=== PATIENT | female | born 1990 | race Caucasian/White ===

== ENCOUNTER 2021-03-28 19:18 | Emergency (ER) | payer OTHER, SELFPAY ==
[2021-03-28 19:32] VITALS: BP 117/64; PULSE 100; RESP 14; TEMP 36.6; O2SAT 99
--- NOTE | 2021-03-28 20:07 | ED.WOUNDLAC ---
HPI - Wound/Laceration General Chief Complaint: Wound/Laceration Stated Complaint: Swollen Ear Time Seen by Provider: 03/28/21 20:00 Source: patient and RN notes reviewed Mode of arrival: ambulatory Limitations: no limitations History of Present Illness HPI narrative: 31-year-old female presents with concern for swollen left earlobe after pulling a tick off of her ear yesterday. She reports she believes she got the full tick out, reports it is a brown tick. Reports the earlobe has been swelling, warm, tender. She reports yellow drainage from the bite site. Related Data Home Medications Medication Instructions Recorded Confirmed levonorgestrel-ethinyl estrad 1 tablet PO DAILY 03/28/21 03/28/21 Allergies Allergy/AdvReac Type Severity Reaction Status Date / Time amoxicillin Allergy Unknown HIVES Verified 03/28/21 19:39 Penicillins Allergy Unknown HIVES Verified 03/28/21 19:39 Sulfa (Sulfonamide Allergy Unknown Hives Verified 03/28/21 19:39 Antibiotics) Review of Systems Review of Systems: Narrative: CONSTITUTIONAL: Denies malaise, chills, sweats, or fever. EYES: Denies visual changes, redness, or discharge. ENT: Denies swollen lips, swollen tongue, difficulty swallowing CARDIOVASCULAR: Denies chest pain, palpitations, or edema. RESPIRATORY: Denies cough or dyspnea. GASTROINTESTINAL: Denies abdominal pain, nausea, vomiting, diarrhea SKIN: Reports swollen, red, tender left earlobe MUSCULOSKELETAL: Denies myalgia. NEUROLOGIC: Denies headache. All systems reviewed & are unremarkable except as noted in HPI and below PMFSH Comments At time of signature, agree with nursing past medical, surgical, social and family history. There is no relevant family history pertinent to the presenting complaint Exam Narrative: Exam Narrative: GENERAL: Well-appearing, well-nourished, and in no acute distress. HEAD: Normocephalic, atraumatic. EYES: PERRLA, conjunctivae clear, and EOMI. ENT: Mucous membranes moist. Oropharynx without edema, erythema or lesions. NECK: Supple. No lymphadenopathy CHEST: Clear to auscultation. No respiratory distress. HEART: Regular rate and rhythm. SKIN: Warm, dry. Left earlobe is erythematous, warm, tender with slight induration, yellow drainage noted no other redness rash noted to the body NEURO: Alert and oriented x3. PSYCH: Normal mood and affect Course Course Emergency Course: Patient is aware of diagnosis, understands and agrees to treatment plan. Anticipatory guidance given. Patient agrees to follow-up as directed and is aware of reasons to seek care at the emergency department. Portions of this record may have been created with voice recognition software Vital Signs Vital signs: Vital Signs Temperature 98 F 03/28/21 19:32 Pulse Rate 100 03/28/21 19:32 Respiratory Rate 14 03/28/21 19:32 Blood Pressure 117/64 03/28/21 19:32 Pulse Oximetry 99 03/28/21 19:32 Temperature 98 F 03/28/21 19:32 Pulse Rate 100 03/28/21 19:32 Respiratory Rate 14 03/28/21 19:32 Blood Pressure 117/64 03/28/21 19:32 Pulse Oximetry 99 03/28/21 19:32 Reviewed. MDM - Wound/Laceration MDM Narrative Medical decision making narrative: Exam findings show no acute concerns or changes; patient is non-toxic appearing and is in no distress. Patient is appropriate for outpatient treatment and follow-up. Differential Diagnosis Differential diagnosis: Likely abscess and other (Cellulitis, Lyme disease, foreign body) Critical Care Time Critical Care Time Critical Care Time: No Discharge Plan Discharge Clinical Impression: Cellulitis Qualifiers: Site of cellulitis: other site Qualified Code(s): L03.818 - Cellulitis of other sites Patient Disposition: Home, Self-Care Condition: Stable Instructions: Antibiotic Form, Cellulitis (ED) Additional Instructions: Please follow up with your Primary Care Doctor If symptoms worsen return for. Apply moist heat 3-4 times daily for 10-15
== END 2021-03-28 20:17 | disposition home or self-care (01) ==
PROVIDERS: Emergency Provider Nurse Practitioner; PCP Internal Medicine
DX: H60.12 Cellulitis of left external ear (principal)
CPT/HCPCS: 99213; G0463

== ENCOUNTER 2022-05-16 16:44 | Emergency (ER) | payer OTHER, SELFPAY ==
--- NOTE | 2022-05-16 16:48 | ED.SKABFB ---
HPI - Skin/Abscess/Foreign Bdy General Chief complaint: Skin/Abscess/Foreign Body Stated complaint: Rash Time Seen by Provider: 05/16/22 16:48 Source: patient Mode of arrival: ambulatory Limitations: no limitations History of Present Illness HPI narrative: Ms. Burger is a 32-year-old female patient presenting to the clinic today with complaints of rash x1 to 2 days. She reports she was pulling weeds and got into some poison dolores. She has facial swelling and itchy blistered rash to bilateral arms. Related Data Home Medications Medication Instructions Recorded Confirmed norgestimate-ethinyl estradiol tablet 05/16/22 05/16/22 0.18 mg/0.215mg/0.25mg-35 mcg(28)tablet (Tri Femynor) Allergies Allergy/AdvReac Type Severity Reaction Status Date / Time amoxicillin Allergy Unknown HIVES Verified 05/16/22 16:56 Penicillins Allergy Unknown HIVES Verified 05/16/22 16:56 Sulfa (Sulfonamide Allergy Unknown Hives Verified 05/16/22 16:56 Antibiotics) Review of Systems Review of Systems: Pertinent positives per HPI. Patient denies any fever, chills, headache, visual changes, dizziness, cough, runny nose, sore throat, shortness of breath, chest pain, palpitations, nausea, vomiting, diarrhea, constipation, abdominal pain, or any urinary issues. PMFSH Comments At the time of my signature, I reviewed and agree with the nursing past medical, surgical, social, and family history. There is no relevant family history pertinent to the patient complaint. Exam Narrative: General: Well-developed, well nourished, in no apparent distress Head: Normocephalic, atraumatic. Cardio: Regular rate and rhythm, s1 and s2 normal, no murmur appreciated. Resp: Clear to auscultation bilaterally, no rhonchi, rales, wheezing or rubs. Integumentary: [place], warm, and dry, intact without lesion, facial swelling with blistery red raised rash to face and bilateral arms. Course Course Emergency Course: Portions of this record may have been created with voice recognition software. Level of Care: Express Care Visit Vital Signs Vital signs: Vital signs reviewed MDM - Skin/Abscess/Foreign Bdy MDM Narrative Medical decision making narrative: At the time of visit patient was resting comfortably on the exam table. 10 mg of dexamethasone was given IM in the clinic. Prednisone prescription sent to the pharmacy. Supportive measures were discussed with the patient she voiced understanding of discharge instructions and agrees to treatment plan. Differential Diagnosis Differential diagnosis: Likely contact dermatitis Discharge Plan Discharge Clinical Impression: Allergic contact dermatitis due to plant Patient Disposition: Home, Self-Care Condition: Stable Instructions: Poison Dolores (ED), Cold Compress or Soak (ED) Additional Instructions: Prednisone as prescribed. Dexamethasone 10 mg IM given in the clinic today. Avoid hot showers Avoid scratching May apply cool compresses to help alleviate itching May take 25 to 50 mg of Benadryl every 6 hours as needed for itching. Follow-up with your PCP in 3 to 5 days if symptoms persist or sooner if they worsen Prescriptions: New prednisone 20 mg tablet 40 mg PO DAILY 5 Days Qty: 10 0RF No Action norgestimate-ethinyl estradiol [Tri Femynor] 0.18/0.215/0.25 mg-35 mcg (28) tablet Follow-up/Referrals: Madina,Jony Kirkland MD [Primary Care Provider] - Time of Disposition: 17:16 Quality NIHSS Nursing Documentation ED NIHSS nursing documentation: reviewed/agree
[2022-05-16 16:51] VITALS: BP 124/66; PULSE 74; RESP 16; TEMP 36.9; O2SAT 100
== END 2022-05-16 17:18 | disposition home or self-care (01) ==
PROVIDERS: Emergency Provider Nurse Practitioner Family; PCP Internal Medicine
DX: L23.7 Allergic contact dermatitis due to plants, except food (principal)
CPT/HCPCS: 96372; 99213; G0463; J1100

== ENCOUNTER 2023-03-04 18:00 | Emergency (ER) | payer OTHER, SELFPAY ==
[2023-03-04 18:06] VITALS: BP 100/59; PULSE 84; RESP 16; TEMP 37.1; O2SAT 100
--- NOTE | 2023-03-04 18:21 | ED.GENADULT ---
HPI - General Adult General Chief complaint: Ear Stated complaint: Ears nose throat Time Seen by Provider: 03/04/23 18:21 Source: patient, RN notes reviewed and old records reviewed Mode of arrival: ambulatory Limitations: no limitations History of Present Illness HPI narrative: 33-year-old female who presents to [facility] with complaints of bilateral ear pain and sinus pressure since yesterday. Patient also verbalizes that she has had some frontal headache pain. Patient denies any known fevers,chills or sweats, denies any cough or shortness of breath. Patient has taken Zyrtec for her symptoms. MD complaint: URI Onset (ago): day(s) (1) Severity scale (1-10): 5 Treatments prior to arrival: other (Zyrtec) Related Data Home Medications Medication Instructions Recorded Confirmed cetirizine 10 mg tablet (Zyrtec) 10 mg PO DAILY 03/04/23 03/04/23 Allergies Allergy/AdvReac Type Severity Reaction Status Date / Time amoxicillin Allergy Unknown HIVES Verified 03/04/23 18:12 Penicillins Allergy Unknown HIVES Verified 03/04/23 18:12 Sulfa (Sulfonamide Allergy Unknown Hives Verified 03/04/23 18:12 Antibiotics) Review of Systems Review of Systems: CONSTITUTIONAL: Denies malaise, chills, sweats, or fever. EYES: Denies visual changes, redness, or discharge. ENT: Reports rhinorrhea, congestion, sinus pain, otalgia denies sore throat. CARDIOVASCULAR: Denies chest pain, palpitations, or edema. RESPIRATORY: Reports no cough.? Denies dyspnea. GASTROINTESTINAL: Denies abdominal pain, nausea, vomiting, diarrhea SKIN: Denies rash or itching. MUSCULOSKELETAL: Denies myalgia. NEUROLOGIC:Reports frontal headache. 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 There is no relevant family history pertinent to the presenting complaint Exam Narrative: GENERAL: Well-appearing, well-nourished, and in no acute distress. HEAD: Normocephalic EYES: PERRLA, conjunctivae clear ENT: Nares clear, turbinates edematous and erythematous, clear discharge. Mucous membranes moist. TM pearly godinez with dull light reflex bilaterally; no tragal tenderness. Oropharynx erythematous without lesions. Tonsils not enlarged and without exudate, no drooling, no hoarseness, no trismus, uvula midline. NECK: Supple. No lymphadenopathy CHEST: Clear to auscultation, breath sounds equal. No wheezing, rhonchi, rales, or stridor. No respiratory distress, speaks in full sentences.SAO2 100% on room air HEART: Regular rate and rhythm. No murmur heard. SKIN: Warm, dry, no rash. NEURO: Alert and oriented x3. PSYCH: Normal mood and affect Course Course Emergency Course: Patient is aware of diagnosis, understands and agrees to treatment plan.? Anticipatory guidance given.? Patient agrees to follow-up as directed and is aware of reasons to seek care at the emergency department. Portions of this record may have been created with voice recognition software Level of Care: Express Care Visit Vital Signs Vital signs: Vital Signs Temperature 37.1 C 03/04/23 18:06 Pulse Rate 84 03/04/23 18:06 Respiratory Rate 16 03/04/23 18:06 Blood Pressure 100/59 L 03/04/23 18:06 Pulse Oximetry 100 03/04/23 18:06 Oxygen Delivery Room
== END 2023-03-04 18:43 | disposition home or self-care (01) ==
PROVIDERS: Emergency Provider Registered Nurse; PCP Internal Medicine
DX: J06.9 Acute upper respiratory infection, unspecified (principal); Q74.0 Other congenital malformations of upper limb(s), including shoulder girdle
CPT/HCPCS: 99213; G0463

== ENCOUNTER 2023-11-08 12:12 | Emergency (ER) | payer OTHER, SELFPAY ==
[2023-11-08 12:31] VITALS: BP 119/63; PULSE 94; RESP 16; TEMP 36.6; O2SAT 99
--- NOTE | 2023-11-08 12:41 | PC.NURSE ---
1237 in br to try to obtain dirty urine spec. and aware of need for clean catch urine.
--- NOTE | 2023-11-08 12:53 | ED.GENADULT ---
HPI - General Adult General Chief complaint: Urogenital-Female Stated complaint: Vaginal Issue Source: patient Mode of arrival: ambulatory Limitations: no limitations History of Present Illness HPI narrative: Patient presents for STI examination. She indicates she had to male sex partners within 24 hours approximately 1 week ago. She was involved in unprotected receptive vaginal intercourse. Yesterday she developed a loaiza vaginal discharge, some pelvic cramping and low back pain. She thinks she may be getting ready to start her period as her LMP was 10/09/2023. No fever, chills, nausea, vomiting. Related Data Allergies Allergy/AdvReac Type Severity Reaction Status Date / Time amoxicillin Allergy Unknown HIVES Verified 03/04/23 18:12 Penicillins Allergy Unknown HIVES Verified 03/04/23 18:12 Sulfa (Sulfonamide Allergy Unknown Hives Verified 03/04/23 18:12 Antibiotics) Review of Systems Review of Systems: CONSTITUTIONAL: Denies fever, chills, or sweats. EYES: Denies visual changes, redness, or discharge. ENT: Denies rhinorrhea, congestion, sore throat, or otalgia. CARDIOVASCULAR: Denies chest pain, palpitations, or edema. RESPIRATORY: Denies cough or dyspnea. GASTROINTESTINAL: Denies abdominal pain, nausea, vomiting, or diarrhea. GENITOURINARY: Reports vaginal discharge and pelvic cramping. SKIN: Denies rash or itching. MUSCULOSKELETAL:Reports low back pain. Denies joint pain, or myalgia. NEUROLOGIC: Denies headache, numbness, dizziness, or weakness. PSYCHIATRIC: Denies anxiety or depression. 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 HEAD: Normocephalic, atraumatic. EYES: PERRLA and EOMI. ENT: Nares clear, no rhinorrhea or epistaxis. Mucous membranes moist. Oropharynx without tonsillar hypertrophy exudate or other lesions. Bilateral TMs pearly godinez nonbulging NECK: Supple. No adenopathy or masses. No carotid bruits or JVD CHEST: Clear to auscultation. No respiratory distress. No wheezes rales or rhonchi HEART: Regular rate and rhythm. No murmur heard. Normal peripheral pulses. ABDOMEN: Soft, nontender, nondistended, normal active bowel sounds. GENITAL: No external genital lesions. No adnexal tenderness. Moderate amount of milky yellow brown drainage in vaginal vault. EXTREMITIES: Normal range of motion. No edema. SKIN: Warm, dry, no rash. NEURO: No focal deficits. Alert and oriented x3. PSYCH: Normal mood and affect. Course Course Emergency Course: This is a 33-year-old female who presented for evaluation of vaginal discharge. Opted to proceed with empiric treatment for gonorrhea, chlamydia, BV and trich. Also give her some Diflucan she can take at the end of her antibiotic course. Increase hydration. [id number] agents for symptom management. Follow up primary provider. Advised on safer sex practices. Patient in agreement with plan of care. Level of Care: Express Care Visit Vital Signs Vital signs: Vital Signs Temperature 36.6 C 11/08/23 12:31 Pulse Rate 94 11/08/23 12:31 Respiratory Rate 16 11/08/23 12:31
[2023-11-08] MEDS: cefTRIAXone 500 MG, LIDOCAINE HCL 1% LOCAL INJ 1 ML IM (13:29)
[2023-11-08 16:50] LABS: Trichomonas Vag PCR DETECTED (NOT DETECTE)
[2023-11-08 17:28] LABS: Chlamydia trachomatis NOT DETECTED (NOT DETECTE); Neisseria gonorrhoeae PCR NOT DETECTED (NOT DETECTE)
[2023-11-11 03:41] LABS: Bacterial Vaginosis Negative (Negative)
== END 2023-11-08 13:57 | disposition home or self-care (01) ==
PROVIDERS: Emergency Provider Nurse Practitioner; PCP Internal Medicine
DX: N76.0 Acute vaginitis (principal); Z11.3 Encounter for screening for infections with a predominantly sexual mode of transmission; Q74.0 Other congenital malformations of upper limb(s), including shoulder girdle; F17.210 Nicotine dependence, cigarettes, uncomplicated
CPT/HCPCS: 81003; 81513; 87070; 87086; 87491; 87591; 87661; 96372; 99214; G0463; J0696

== ENCOUNTER 2024-01-25 10:33 | Emergency (ER) | payer OTHER, SELFPAY ==
[2024-01-25 10:40] VITALS: BP 94/64; PULSE 97; RESP 18; TEMP 36.9; O2SAT 100
--- NOTE | 2024-01-25 11:23 | ED.FEMALEGU ---
HPI - Female Genitourinary General Stated complaint: std test History of Present Illness HPI Narrative: Patient presents with concerns that she is positive for Trichomonas again. Patient denies any concern for any other STDs and states she has been pretreated for Trichomonas in the past but got back together with her partner and feels that they are reinfect in each other with Trichomonas. Related Data Allergies Allergy/AdvReac Type Severity Reaction Status Date / Time amoxicillin Allergy Unknown HIVES Verified 03/04/23 18:12 Penicillins Allergy Unknown HIVES Verified 03/04/23 18:12 Sulfa (Sulfonamide Allergy Unknown Hives Verified 03/04/23 18:12 Antibiotics) Review of Systems Review of Systems: CONSTITUTIONAL: Denies fever, chills, or sweats. EYES: Denies visual changes, redness, or discharge. ENT: Denies rhinorrhea, congestion, sore throat, or otalgia. CARDIOVASCULAR: Denies chest pain, palpitations, or edema. RESPIRATORY: Denies cough or dyspnea. GASTROINTESTINAL: Denies abdominal pain, nausea, vomiting, or diarrhea. GENITOURINARY: Denies dysuria or hematuria. SKIN: Denies rash or itching. MUSCULOSKELETAL: Denies back pain, joint pain, or myalgia. NEUROLOGIC: Denies headache, numbness, or weakness. PSYCHIATRIC: Denies anxiety or depression. 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 There is no relevant family history pertinent to the presenting complaint Exam Narrative: GENERAL: Well-appearing, well-nourished, and in no acute distress. HEAD: Normocephalic, atraumatic. EYES: PERRLA and EOMI. ENT: Nares clear, no rhinorrhea or epistaxis. Mucous membranes moist. NECK: Supple. CHEST: Clear to auscultation. No respiratory distress. HEART: Regular rate and rhythm. No murmur heard. Normal peripheral pulses. ABDOMEN: Soft, nontender, nondistended, normal active bowel sounds. EXTREMITIES: Normal range of motion. No edema. SKIN: Warm, dry, no rash. NEURO: No focal deficits. Alert and oriented x3. [place] Coma Scale Eye Opening: Spontaneous 4 [place] Coma Scale Motor: Obeys Commands 6 [place] Coma Scale Verbal: Oriented 5 [place] Coma Scale Total 15 Course Course Level of Care: Express Care Visit Vital Signs Vital signs: Discussed will with patient will treat for Trichomonas at today's visit but will test for all STDs. Instructed not to drink alcohol while taking medication please call for results in 48-72 hours. Please of stain for any sexual counters for the next 7-10 days. Discharge Plan Discharge Clinical Impression: STD (female), Trichomonal infection Patient Disposition: Home, Self-Care Condition: Stable Instructions: Trichomoniasis (ED) Additional Instructions: STD If you are treated with Flagyl or Metronidazole, please abstain from alcohol use during the time of treatment and at least 24-48 hours after treatment is completed Please discuss testing and treating with all recent sexual partners, and advise testing as well. Please abstain from sexual activity for 7 days after treatment and until a
[2024-01-25 15:47] LABS: Trichomonas Vag PCR NOT DETECTED (NOT DETECTE)
[2024-01-25 16:10] LABS: Chlamydia trachomatis NOT DETECTED (NOT DETECTE); Neisseria gonorrhoeae PCR NOT DETECTED (NOT DETECTE)
== END 2024-01-25 11:25 | disposition home or self-care (01) ==
PROVIDERS: Emergency Provider Nurse Practitioner Family; PCP Internal Medicine
DX: A59.9 Trichomoniasis, unspecified (principal); F17.210 Nicotine dependence, cigarettes, uncomplicated; Q71.21 Congenital absence of both forearm and hand, right upper limb
CPT/HCPCS: 87491; 87591; 87661; 99214; G0463

== ENCOUNTER 2024-07-09 08:11 | Emergency (ER) | payer OTHER, SELFPAY ==
[2024-07-09 08:16] VITALS: BP 114/71; PULSE 98; RESP 16; TEMP 36.7; O2SAT 100
--- NOTE | 2024-07-09 08:25 | ED.URI ---
HPI - URI/Sore Throat General Chief Complaint: Upper Respiratory Infection Stated Complaint: Rash/Sore Throat Time Seen by Provider: 07/09/24 08:25 History of Present Illness HPI Narrative: 34-year-old female presented for complaint of itchy rash to both sides of the neck for about a month. Also reports sore throat nasal congestion and cough for about 3 days. Patient states she would like blood test to confirm HSV diagnosis, Endorses exposure. Denies any lesions or wounds. Denies shortness of breath, wheezing, nausea, vomiting, fevers or chills. Related Data Allergies Allergy/AdvReac Type Severity Reaction Status Date / Time amoxicillin Allergy Unknown HIVES Verified 01/25/24 13:26 Penicillins Allergy Unknown HIVES Verified 01/25/24 13:26 Sulfa (Sulfonamide Allergy Unknown Hives Verified 01/25/24 13:26 Antibiotics) Review of Systems Review of Systems: CONSTITUTIONAL: Denies body aches, fever, chills, or sweats. EYES: Denies visual changes, redness, or discharge. ENT: reports sore throat, rhinorrhea, congestion, otalgia. CARDIOVASCULAR: Denies chest pain, palpitations, or edema. RESPIRATORY: Denies dyspnea. GASTROINTESTINAL: Denies abdominal pain, nausea, vomiting, or diarrhea. SKIN: Denies reports rash to neck MUSCULOSKELETAL: Denies back pain, joint pain, or myalgia. 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 EYES: conjunctivae clear ENT: Mucous membranes moist. TMs pearly godinez with normal light reflex bilaterally; no tragal tenderness. Oropharynx not erythematous without lesions. Tonsils not enlarged and without exudate. No drooling, no hoarseness, no trismus, uvula midline. No tripod positioning, hot potato voice, or soft palate swelling. NECK: Supple. No lymphadenopathy CHEST: Clear to auscultation, breath sounds equal. No respiratory distress, speaks in full sentences. HEART: Regular rate and rhythm. No murmur heard. SKIN: Warm, dry, Mildly erythematous flaky patches to both sides of neck. NEURO: Alert and oriented x3. Course Course Emergency Course: Patient is aware of diagnosis, understands and agrees to treatment plan. Anticipatory guidance given. Patient agrees to follow-up as directed and is aware of reasons to seek care at the emergency department. Portions of this record may have been created with voice recognition software Level of Care: Express Care Visit Vital Signs Vital signs: Vital Signs Temperature 98.1 F 07/09/24 08:16 Pulse Rate 98 07/09/24 08:16 Respiratory Rate 16 07/09/24 08:16 Blood Pressure 114/71 07/09/24 08:16 Pulse Oximetry 100 07/09/24 08:16 Oxygen Delivery Room Air 07/09/24 08:16 Temperature 98.1 F 07/09/24 08:16 Pulse Rate 98 07/09/24 08:16 Respiratory Rate 16 07/09/24 08:16 Blood Pressure 114/71 07/09/24 08:16 Pulse Oximetry 100 07/09/24 08:16 Oxygen Delivery Room Air 07/09/24 08:16 MDM - URI/Sore Throat MDM Narrative Medical decision making narrative: Neg strep result reviewed with pt. discussed physical exam findings consistent with dermatitis
[2024-07-09 08:38] LABS: EDSTREPNEGPOS1 Negative
== END 2024-07-09 08:48 | disposition home or self-care (01) ==
PROVIDERS: Emergency Provider Nurse Practitioner Family; PCP Internal Medicine
DX: L30.9 Dermatitis, unspecified (principal); F17.210 Nicotine dependence, cigarettes, uncomplicated
CPT/HCPCS: 87081; 87880; 99213; G0463

== ENCOUNTER 2024-11-24 12:37 | Emergency (ER) | payer OTHER, SELFPAY ==
[2024-11-24 12:43] VITALS: BP 100/52; PULSE 86; RESP 16; TEMP 36.8; O2SAT 100
[2024-11-24 13:36] LABS: EDSTREPNEGPOS1 Negative (Negative)
--- NOTE | 2024-11-24 14:05 | ED.GENADULT ---
HPI - General Adult General Chief complaint: Upper Respiratory Infection Stated complaint: Sore Throat Source: patient Mode of arrival: ambulatory Limitations: no limitations History of Present Illness HPI narrative: Pt presents requesting a strep test. Two of her family members tested positive for strep earlier today. Pt does not have a sore throat. No fever, chills, nausea, vomiting, cough, SOB or any other symptoms whatsoever. Related Data Home Medications ?Medication ?Instructions ?Recorded ?Confirmed ?Last Taken ?Type Fish Oil 11/24/24 Unknown History vitamin b 11/24/24 Unknown History Allergies Allergy/AdvReac Type Severity Reaction Status Date / Time amoxicillin Allergy Unknown HIVES Verified 11/24/24 12:40 Penicillins Allergy Unknown HIVES Verified 11/24/24 12:40 Sulfa (Sulfonamide Allergy Unknown Hives Verified 11/24/24 12:40 Antibiotics) Review of Systems Review of Systems: CONSTITUTIONAL: Denies fever, chills, or sweats. EYES: Denies visual changes, redness, or discharge. ENT: Denies rhinorrhea, congestion, sore throat, or otalgia. CARDIOVASCULAR: Denies chest pain, palpitations, or edema. RESPIRATORY: Denies cough or dyspnea. GASTROINTESTINAL: Denies abdominal pain, nausea, vomiting, or diarrhea. GENITOURINARY: Denies dysuria or hematuria. SKIN: Denies rash or itching. MUSCULOSKELETAL: Denies back pain, joint pain, or myalgia. NEUROLOGIC: Denies headache, numbness, dizziness, or weakness. PSYCHIATRIC: Denies anxiety or depression. 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 HEAD: Normocephalic, atraumatic. EYES: PERRLA and EOMI. ENT: Nares clear, no rhinorrhea or epistaxis. Mucous membranes moist. Oropharynx without tonsillar hypertrophy exudate or other lesions. Bilateral TMs pearly godinez nonbulging NECK: Supple. No adenopathy or masses. No carotid bruits or JVD CHEST: Clear to auscultation. No respiratory distress. No wheezes rales or rhonchi HEART: Regular rate and rhythm. No murmur heard. Normal peripheral pulses. ABDOMEN: Soft, nontender, nondistended, normal active bowel sounds. EXTREMITIES: Normal range of motion. No edema. SKIN: Warm, dry, no rash. NEURO: No focal deficits. Alert and oriented x3. PSYCH: Normal mood and affect. Course Course Emergency Course: This is a 34 yr old female who presented requesting a strep test. She is asymptomatic. Strep was negative. Will send throat culture. Advised on hand hygiene and infection control measures. Follow up with primary provider. Go to the ER for worsening symptoms. Pt in agreement with plan of care. Level of Care: Express Care Visit Vital Signs Vital signs: Vital Signs Temperature 36.8 C 11/24/24 12:43 Pulse Rate 86 11/24/24 12:43 Respiratory Rate 16 11/24/24 12:43 Blood Pressure 100/52 L 11/24/24 12:43 Pulse Oximetry 100 11/24/24 12:43 Oxygen Delivery Room Air 11/24/24 12:43 Temperature 36.8 C 11/24/24 12:43 Pulse Rate 86 11/24/24 12:43 Respiratory Rate 16 11/24/24 12:43 Blood Pressure 100/52 L 11/24/24 12:43 Pulse Oximetry 100 11/24/24 12:43 Oxygen Delivery Room Air 11/24/24 12:43 Medical Decision Making Vital Signs Vital Signs: Vital Signs Temperature 36.8 C 11/24/24 12:43 Pulse Rate 86 11/24/24 12:43 Respiratory Rate 16 11/24/24 12:43 Blood Pressure 100/52 L 11/24/24 12:43 Pulse Oximetry 100 11/24/24 12:43 Oxygen Delivery Room Air 11/24/24 12:43 Temperature 36.8 C 11/24/24 12:43 Pulse Rate 86 11/24/24 12:43 Respiratory Rate 16 11/24/24 12:43 Blood Pressure 100/52 L 11/24/24 12:43 Pulse Oximetry 100 11/24/24 12:43 Oxygen Delivery Room Air 11/24/24 12:43 Lab Data Labs: Lab Results 11/24/24 Range/Units 13:35 POC Grp A Strep Screen Negative (Negative) Discharge Plan Discharge Clinical Impression: Exposure to strep throat Patient Disposition: Home, Self-Care Condition: Stable Instructions: Antibiotic Form, Normal Exam (ED) Patient Language: Amharic Prescriptions: No Action Fish Oil vitamin b Follow-up/Referrals: Bridgette Morrissey [Other] Time of Disposition: 14:04
--- OUTSIDE RECORDS SUMMARY | 2024-11-26 00:23 | XMS_ITS | Clinical Summary ---
Author Organization [facility] Address [address] [place] [address] Phone Care Team Providers Care Lead Sales Consultant Name Role Phone Bridgette Morrissey APRN, MANAGER CAR Primary Care P rovider Dinora Rojas APRN, MANAGER CAR Unavailable [phone] Cheikh Fairbanks MD Unavailable [phone] Allergies Active Allergy Reactions Criticality Noted Date Comments Amoxicillin Hives,Itching 08/17/2018 Cefaclor Hives Reaction: Hives, Penicillins Itching 08/17/2018 Sulfa Antibiotics Swelling 08/17/2018 Valacyclovir Hives Low 08/23/2024 Medications No known medications Active Problems Problem Noted Date Diagnosed Date 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 Menometrorrhagia 09/14/2018 Immunizations Immunization Administration Dates Next Due DTP Vaccine 04/07/1995,05/19/1992,01/13/1991 Hib Vaccine,unspecified Formulation 05/19/1992,0 01/13/1991 Inactivated Polio Vaccine 05/19/1992,01/13/1991 Influenza Vaccine, Quadrivalent, PF 08/04/2020,0 12/30/2019,08/17/2018 MMR Vaccine 11/30/2014,04/07/1995,05/19/1992 OPV 04/07/1995 TD VACCINE 08/09/2004 TDAP Vaccine 02/03/2024(),11/29/2014 Social History Tobacco Use Types Packs/Day Years Used Date Smoking Tobacco: Former Cigarettes Smokeless Tobacco: Never Tobacco Cessation:Counseling Given: No Alcohol Use Standard Drinks/Week Comments Yes 0 (1 standard drink = 0.6 oz pur e alcohol) Occasionally C Utilities Answer Date Recorded In the past 12 months has th e electric, gas, oil, or water company threatened to shut off services in your home? No 07/16/2024 Social Connection and Isolat ion Panel [NHANES] Answer Date Recorded In a typical week, how many times do you talk on the phone with family, friends, or neighbors? More than three times a week 07/16/2024 How often do you get togethe r with friends or relatives? Once a week 07/16/2024 How often do you attend chur or voodoo services? Never 07/16/2024 Do you belong to any clubs o r organizations such as amish groups, unions, fraternal or athletic groups, or school groups? No 07/16/2024 How often do you attend meet ings of the clubs or organizations you belong to? Never 07/16/2024 Are you , , di vorced, , never , or living with a partner? Never 07/16/2024 AUDIT-C Answer Date Recorded Q1: How often do you have a drink containing alc ohol? Monthly or less 07/16/2024 Q2: How many drinks containi ng alcohol do you have on a typical day when you are drinking? 1 or 2 07/16/2024 Q3: How often do you have si x or more drinks on one occasion? Never 07/16/2024 Overall Financial Resource Strain (CARDIA) Answe r Date Recorded How hard is it for you to pa y for the very basics like food, housing, medical care, and heating? Hard 07/16/2024 [facility] - Occupational Stress Questionnaire Answer Date Recorded Do you feel stress - tense, restless, nervous, or anxious, or unable to sleep at night because your mind is troubled all the time - these days? Rather much 07/16/2024 Exercise Vital Sign Answer Date Recorde d On average, how many days pe r week do you engage in moderate to strenuous exercise (like a brisk walk)? 7 days 07/16/2024 On average, how many minutes do you engage in exercise at this level? 60 min 07/16/2024 Hunger Vital Sign Answer Date Recorded Within the past 12 months, y ou worried that your food would run out before you got the money to buy more. Sometimes true Within the past 12 months, t he food you bought just didn't last and you didn't have money to get more. Sometimes true PRAPARE - Transportation Answer Date Re corded In the past 12 months, has l ack of transportation kept you from medical appointments or from getting medications? No 07/04 In the past 12 months, has l ack of transportation kept you from meetings, work, or from getting things needed for daily living? No 07/16/2024 Housing Stability Vital Sign Answer Renato e Recorded In the last 12 months, was t here a time when you were not able to pay the mortgage or rent on time? Yes 07/16/2024 Number of Times Moved in the Last Year Not on fi le 07/16/2024 At any time in the past 12 m [facility], were you homeless or living in a halfway (including now)? No 07/16/2024 Comments No Sex and Gender Information Value Date Recorded Sex Assigned at Not on file Legal Sex Female 7:34 PM CDT Gender Identity Not on file Sexual Orientation Not on file Last Filed Vital Signs Vital Sign Reading Time Taken Comments Blood Pressure 112/58 08/23/2024 3:29 PM CDT Pulse 68 08/23/2024 3:29 PM CDT Temperature 36.2 ??C (97.1 ??F) 08/23/2024 3:29 PM CD T Respiratory Rate 20 08/23/2024 3:29 PM CDT Oxygen Saturation 98% 08/23/2024 3:29 PM CDT Inhaled Oxygen Concentration - - Weight 48.5 kg (107 lb) 08/23/2024 3:29 PM CDT Height 157.5 cm (5' 2 ) 07/16/2024 2:39 PM CDT Body Mass Index 19.57 07/16/2024 2:39 PM CDT Plan of Treatment Health Maintenance Due Date Last Done Comments Pap Smear 08/17/2021 08/17/2018 Cervical Cancer Screening (CCS) 08/17/2023 HPV/Cotest 08/17/2023 08/17/2018 SARS-COV-2 Immunization (2023- season) 2024 DTaP/Tdap/Td Immunization (6 - Td or Tdap) 11/29/2024 11/29/2014, 08/09/2004, 04/07/1995, Additional history exists Influenza Immunization (#1) 2025 08/04/2020, 12/30/2019, 08/17/2018 Postponed from 07/04/2024 (Patient Temporarily Declines) Respiratory Syncytial Virus (RSV) Immunization (Adult) (1 - 1-dose 75+ series) 2065 Hepatitis C Virus (HCV) Screening Completed 07/08/2014 TdaP Immunization Discontinued 11/29/2014 Hepatitis B Immunization Discontinued Meningococcal Immunization (ACWY) Aged Out No longer eligible based on patient's age to complete this topic Pneumococcal Immunization Combined Aged Out No longer eligible based on patient's age to complete this topic Rotavirus Immunization Aged Out No lo nger eligible based on patient's age to complete this topic Procedures Procedure Name Priority Date/Time Associated Diagnosis Comments HUMAN PAPILLOMA VIRUS (HPV) Routine 08/17/2018 3:31 PM CDT Cervical cancer screening PATHOLOGY CYTOLOGY AREA LOSS PREVENTION MANAGER Routine 08/17/2018 3:31 PM CDT Cervical cancer screening from Last 3 Months or Most Recently Relevant to Health Maintenance Results * PATHOLOGY CYTOLOGY AREA LOSS PREVENTION MANAGER (08/17/2018 3:31 PM CDT) SPECIMEN ADEQUACY Satisfactory for evaluation. Endocervical cells present. 08/31/2018 6:06 PM CDT [facility] GENERAL CATEGORY EPITHELIAL CELL ABNORMALITY 08/31/2018 6:06 PM CDT [facility] DESCRIPTIVE DIAGNOSIS ASCUS: A high grade lesion cannot be excluded. 08/31/2018 6:06 PM CDT [facility] MATED EXAMINATION Analysis of this sample has been assisted by an automated imaging and review system ([employer] Imaging System, [employer], [place], [place]). This case is further evaluated and finalized by a kettle hand and/or pathologist. 08/31/2018 6:06 PM CDT [facility] DISCLAIMER The PAP smear is a screening test designed to detect cancerous or precancerous cells of the uterine cervix. It is one of the best means available for detection of cervical cancer but still carries an inherent false-negative rate. ??The consequences of a false-negative PAP result can be minimized by adhering to current screening guidelines. ??The following are general guidelines recommended by the ACS, ASCP, ASCCP, and ACOG: ??PAP testing is recommended every three years for women 21-29, Co-Testing , a PAP test in conjunction with an HPV (Human Papillomavirus) test for women ages 30-65, and no PAP or HPV testing for women under the age of 21 or older than 65 unless clinically indicated. 08/31/2018 6:06 PM CDT [facility] Case Report Gynecologic Cytology Report ? Case: [id number] ? Authorizing Provider: ??Alexandra Sinclair, PAC ?Collected: ? 08/17/2018 03:31 PM ? [facility] ? [facility] ? Received: ?08/17/2018 03:31 PM ? [facility] - ? [place] ? First Screen: ?Caryn Mchugh ? Pathologist: ? Flor Perkins ? MD Nia ? Specimen: ?TP Screen, CERVIX/ENDOCERVIX ? 08/31/2018 6:06 PM CDT [facility] HPV Reflex if ASCUS? Yes 08/31/2018 6:06 PM CDT [facility] Specimen of unknown material (specimen) (Cervix/Endocerv ix) Non-Phlebotomy Collection / Unknown 08/17/2018 3:31 PM CDT 08/17/2018 3:31 PM CDT us Alexandra Sinclair PAC PATHOLOGY/CYTOLOGY ORDERA BLES Final Result [facility] [address] [place] [address], [place] * HUMAN PAPILLOMA VIRUS (HPV) (08/17/2018 3:31 PM CDT) HPV OTHER HIGH RISK TYPES, PCR NEGATIVE NEGATIVE 09/02/2018 3:58 PM CDT [facility] Comment: The following Other High Risk types were not detected: 31, 33, 35, 39, 45, 51, 52, 56, 58, 59, 66, and 68. A negative high-risk HPV result does not exclude the possibility of future cytologic HSIL or underlying CIN2-3 or cancer. The presence of PCR inhibitors may cause false negative or invalid results. If concentrations of whole blood in the sample exceed 1.5% (dark red or brown coloration) in PreservCyt solution, there is a likelihood of obtaining a false-negative result. HPV TYPE 16 NEGATIVE NEGATIVE 09/02/2018 3:58 PM CDT [facility] Comment: A negative high-risk HPV result does not exclude the possibility of future cytologic HSIL or underlying CIN2-3 or cancer. The presence of PCR inhibitors may cause false negative or invalid results. If concentrations of whole blood in the sample exceed 1.5% (dark red or brown coloration) in PreservCyt solution, there is a likelihood of obtaining a false-negative result. HPV TYPE 18 NEGATIVE NEGATIVE 09/02/2018 3:58 PM CDT [facility] Comment: A negative high-risk HPV result does not exclude the possibility of future cytologic HSIL or underlying CIN2-3 or cancer. The presence of PCR inhibitors may cause false negative or invalid results. If concentrations of whole blood in the sample exceed 1.5% (dark red or brown coloration) in PreservCyt solution, there is a likelihood of obtaining a false-negative result. Specimen of unknown material (specimen) (Cervix/Endocerv ix) Non-Phlebotomy Collection / Unknown 08/17/2018 3:31 PM CDT 08/31/2018 6:06 PM CDT Narrative [facility] - 09/02/2018 3:58 PM CDT Performed by Real-Time Polymerase Chain Reaction (PCR) on the [employer] 4800. This assay has been validated for use with post-aliquot samples from the [employer] T5000 processor. us Alexandra Sinclair PAC LAB SEND OUTS Final Res ult [facility] [address] [place] [address], [place] from Last 3 Months or Most Recently Relevant to Health Maintenance Insurance [place] [employer] Care Teams Lead Sales Consultant Relationship Specialty Start Date End Date Bridgette Morrissey APRN, MANAGER CAR [address] [place] [address] PCP - General Advanced Practice Nurse 07/16/24 Dinora Rojas APRN, MANAGER CAR [address] [place] [address] Nurse Practitioner Advanced Practice Nurse 09/15/24 Cheikh Fairbanks MD [address] [place] [address] Consulting Physician Obstetrics & Gynecology 09/28/24
== END 2024-11-24 14:10 | disposition home or self-care (01) ==
PROVIDERS: Emergency Provider Nurse Practitioner
DX: Z20.818 Contact with and (suspected) exposure to other bacterial communicable diseases (principal); F17.210 Nicotine dependence, cigarettes, uncomplicated; Q71.21 Congenital absence of both forearm and hand, right upper limb
CPT/HCPCS: 87081; 87880; 99213; G0463

== ENCOUNTER 2025-02-02 09:34 | Emergency (ER) | payer OTHER, SELFPAY ==
[2025-02-02 09:44] VITALS: BP 102/70; PULSE 81; RESP 16; TEMP 36.7; O2SAT 97
--- NOTE | 2025-02-02 09:49 | ED.GENADULT ---
HPI - General Adult General Chief complaint: Upper Respiratory Infection Stated complaint: sore throat Time Seen by Provider: 02/02/25 09:49 History of Present Illness HPI narrative: 34-year-old female presented for complaint of sore throat. Onset yesterday. Endorses stones with similar symptoms. She denies shortness of breath, wheezing nausea, vomiting, fevers or lethargy. She took ibuprofen. Related Data Home Medications ?Medication ?Instructions ?Recorded ?Confirmed ?Last Taken ?Type No Home Medications 02/02/25 Unknown History Allergies Allergy/AdvReac Type Severity Reaction Status Date / Time amoxicillin Allergy Unknown HIVES Verified 02/02/25 09:52 Penicillins Allergy Unknown HIVES Verified 02/02/25 09:52 Sulfa (Sulfonamide Allergy Unknown Hives Verified 02/02/25 09:52 Antibiotics) Review of Systems Review of Systems: CONSTITUTIONAL: Denies body aches, fever, chills, or sweats. EYES: Denies visual changes, redness, or discharge. ENT: Reports sore throat Denies rhinorrhea, congestion, or otalgia. CARDIOVASCULAR: Denies chest pain, palpitations, or edema. RESPIRATORY: Denies dyspnea. GASTROINTESTINAL: Denies abdominal pain, nausea, vomiting, or diarrhea. SKIN: Denies rash MUSCULOSKELETAL: Denies back pain, joint pain, or myalgia. 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 EYES: conjunctivae clear ENT: Mucous membranes moist. TM pearly godinez with normal light reflex bilaterally; no tragal tenderness. Oropharynx erythematous without lesions. Tonsils enlarged 1+ and without exudate. No drooling, no hoarseness, no trismus, uvula midline. No tripod positioning, hot potato voice, or soft palate swelling. NECK: Supple. No lymphadenopathy CHEST: Clear to auscultation, breath sounds equal. No respiratory distress, speaks in full sentences. HEART: Regular rate and rhythm. No murmur heard. SKIN: Warm, dry, no rash. NEURO: Alert and oriented x3. Course Course Emergency Course: Patient is aware of diagnosis, understands and agrees to treatment plan. Anticipatory guidance given. Patient agrees to follow-up as directed and is aware of reasons to seek care at the emergency department. Portions of this record may have been created with voice recognition software Level of Care: Express Care Visit Vital Signs Vital signs: Vital Signs Temperature 98.1 F 02/02/25 09:44 Pulse Rate 81 02/02/25 09:44 Respiratory Rate 16 02/02/25 09:44 Blood Pressure 102/70 02/02/25 09:44 Pulse Oximetry 97 02/02/25 09:44 Oxygen Delivery Room Air 02/02/25 09:44 Temperature 98.1 F 02/02/25 09:44 Pulse Rate 81 02/02/25 09:44 Respiratory Rate 16 02/02/25 09:44 Blood Pressure 102/70 02/02/25 09:44 Pulse Oximetry 97 02/02/25 09:44 Oxygen Delivery Room Air 02/02/25 09:44 Medical Decision Making MDM Narrative Medical decision making narrative: strep negative. Discussed physical exam findings. Advised supportive measures and signs/symptoms to go to the ER. Pt is appropriate for outpt treatment and f/u. Differential Diagnosis Differential Diagnosis: Influenza, covid, sinusitis, OM, strep pharyngitis, URI Vital Signs Vital Signs: Vital Signs Temperature 98.1 F 02/02/25 09:44 Pulse Rate 81 02/02/25 09:44 Respiratory Rate 16 02/02/25 09:44 Blood Pressure 102/70 02/02/25 09:44 Pulse Oximetry 97 02/02/25 09:44 Oxygen Delivery Room Air 02/02/25 09:44 Temperature 98.1 F 02/02/25 09:44 Pulse Rate 81 02/02/25 09:44 Respiratory Rate 16 02/02/25 09:44 Blood Pressure 102/70 02/02/25 09:44 Pulse Oximetry 97 02/02/25 09:44 Oxygen Delivery Room Air 02/02/25 09:44 Lab Data Labs: Lab Results 02/02/25 Range/Units 10:03 POC Grp A Strep Screen Negative (Negative) Discharge Plan Discharge Clinical Impression: Pharyngitis Patient Disposition: Home, Self-Care Condition: Stable Instructions: Antibiotic Form, Pharyngitis (ED) Additional Instructions: Rapid strep swab was negative today You will be notified in a few days if the culture comes back positive for strep, and appropriate antibiotics will be called in at that time. if symptoms are due to a viral illness, it is not treated with antibiotics. Viral symptoms can be present for up to 10-14 days. Recommendations: Flonase spray and Zyrtec for sinus congestion Cough syrup may cause drowsiness; avoid driving or take it at night time. Tylenol every 8 hours as needed for pain/fever Soft foods, cool liquids, warm tea. Gargle with warm saltwater twice a day. Chloraseptic spray and throat lozenges. Rest and stay hydrated. --Follow up with your PCP --Go to the ER immediately if you cannot swallow your saliva, trouble breathing/wheezing, throat swelling, pain is persistent and severe Patient Language: Citizen Of [place] Prescriptions: No Action No Home Medications Follow-up/Referrals: Yuni,Bridgette Kaur APN [Primary Care Provider] - Time of Disposition: 10:07
[2025-02-02 10:03] LABS: EDSTREPNEGPOS1 Negative (Negative)
--- OUTSIDE RECORDS SUMMARY | 2025-02-02 10:19 | XMS_ITS | Clinical Summary ---
Author Organization [facility] Address [address] [place] [address] Phone Care Team Providers Care Irrigation Equipment Remover Name Role Phone Bridgette Morrissey APRN, COGNOS BI DEVELOPER Primary Care P rovider Dinora Rojas APRN, COGNOS BI DEVELOPER Unavailable [phone] Cheikh Fairbanks MD Unavailable [phone] Allergies Active Allergy Reactions Criticality Noted [...] How often do you attend chur or synagogue services? Never 07/16/2024 Do you belong to any clubs o r organizations such as yazidi groups, unions, fraternal or athletic groups, or [...] housing, medical care, and heating? Hard 07/16/2024 [facility] - Occupational Stress [...] any time in the past 12 m [facility], were you homeless or living in a fci (including now)? No 07/16/2024 Comments No Sex and Gender Information Value Date Recorded Sex Assigned at Not on file Legal Sex Female 7:34 PM CDT Gender Identity Not on file Sexual Orientation Not on file Last Filed Vital Signs Vital Sign Reading Time Taken Comments Blood Pressure 112/58 08/23/2024 3:29 PM CDT Pulse 68 08/23/2024 3:29 PM CDT Temperature 36.2 C (97.1 F) 08/23/2024 3:29 PM CDT Respiratory Rate 20 08/23/2024 3:29 PM CDT [...] (CCS) 08/17/2023 HPV/Cotest 08/17/2023 08/17/2018 SARS-COV-2 Immunization ( season) 2024 DTaP/Tdap/Td Immunization (6 - Td or Tdap) 11/29/2024 11/29/2014, 08/09/2004, 04/07/1995, Additional history exists Influenza Immunization (Season Ended) 2025 08/04/2020, 12/30/2019, 08/17/2018 Respiratory Syncytial Virus (RSV) Immunization (Adult) (1 [...] PM CDT Cervical cancer screening PATHOLOGY CYTOLOGY BOARD CERTIFIED FAMILY PHYSICIAN Routine 08/17/2018 3:31 PM CDT Cervical cancer screening from Last 3 Months or Most Recently Relevant to Health Maintenance Results * PATHOLOGY CYTOLOGY BOARD CERTIFIED FAMILY PHYSICIAN (08/17/2018 3:31 PM CDT) SPECIMEN ADEQUACY Satisfactory for evaluation. Endocervical cells present. 08/31/2018 6:06 PM CDT [facility] GENERAL CATEGORY EPITHELIAL CELL ABNORMALITY 08/31/2018 6:06 PM CDT [facility] DESCRIPTIVE DIAGNOSIS ASCUS: A high grade lesion cannot be excluded. 08/31/2018 6:06 PM CDT [facility] MATED EXAMINATION Analysis of this sample has been assisted by an automated imaging and review system ([employer] System, [employer], [place], [place]). This case is further evaluated and finalized by a advanced practice nurse and/or pathologist. 08/31/2018 6:06 PM CDT [facility] DISCLAIMER The PAP smear is a screening test designed to detect cancerous or precancerous cells of the uterine cervix. It is one of the best means available for detection of cervical cancer but still carries an inherent false-negative rate. The consequences of a false-negative PAP result can be minimized by adhering to current screening guidelines. The following are general guidelines recommended by the ACS, ASCP, ASCCP, and ACOG: PAP testing is recommended every three years for women 21-29, Co-Testing , a PAP test in conjunction with an HPV (Human Papillomavirus) test for women ages 30-65, and no PAP or HPV testing for women under the age of 21 or older than 65 unless clinically indicated. 08/31/2018 6:06 PM CDT [facility] Case Report Gynecologic Cytology Report Case: [id number] Authorizing Provider: Alexandra Sinclair PAC Collected: 08/17/2018 03:31 PM Ordering Location: [facility] Received: 08/17/2018 03:31 PM [facility] Screen: Caryn Mchugh Pathologist: Flor Perkins MD Specimen: TP Screen, CERVIX/ENDOCERVIX 08/31/2018 6:06 PM CDT [facility] HPV Reflex if ASCUS? Yes 08/31/2018 6:06 PM CDT [facility] Specimen of unknown material (specimen) CERVIX UTERI STRUCTURE / Unknown Non-Phlebotomy Collection / Unknown 08/17/2018 3:31 PM CDT 08/17/2018 3:31 PM CDT us Alexandra PIMENTEL PATHOLOGY/CYTOLOGY ORDERA BLES Final Result [facility] [address] [place] [address], * HUMAN PAPILLOMA VIRUS (HPV) (08/17/2018 3:31 PM CDT) HPV OTHER HIGH RISK TYPES, PCR NEGATIVE NEGATIVE 09/02/2018 3:58 PM CDT [facility] Comment: The following Other High Risk [...] 16 NEGATIVE NEGATIVE 09/02/2018 3:58 PM CDT [facility] Comment: A negative high-risk HPV result [...] 18 NEGATIVE NEGATIVE 09/02/2018 3:58 PM CDT [facility] Comment: A negative high-risk HPV result [...] false-negative result. Specimen of unknown material (specimen) CERVIX UTERI STRUCTURE / Unknown Non-Phlebotomy Collection / Unknown 08/17/2018 3:31 PM CDT 08/31/2018 6:06 PM CDT [facility] - 09/02/2018 3:58 PM CDT Performed by Real-Time Polymerase Chain Reaction (PCR) on the [employer] 4800. This assay has been validated for use with post-aliquot samples from the [employer] T5000 processor. Alexandra Sinclair PAC LAB SEND OUTS Final Res ult [facility] [address] [place] [address], [place] from Last 3 Months or Most Recently Relevant to Health Maintenance Insurance MEDICAID [place] MEDICAID [place] [employer] Care Teams Irrigation Equipment Remover Relationship Specialty Start Date End Date Bridgette Morrissey APRN, COGNOS BI DEVELOPER [address] [place] [address] PCP - General Advanced Practice Nurse 07/16/24 Dinora Rojas, SUPERVISOR CD AREA, COGNOS BI DEVELOPER [address] [place] [address] Nurse Practitioner Advanced Practice Nurse 09/15/24 Cheikh Fairbanks MD [address] [place] [address] Consulting Physician Obstetrics & Gynecology 09/28/24
--- OUTSIDE RECORDS SUMMARY | 2025-02-02 10:19 | XMS_ITS ---
Author Organization [facility] Address [address] [place] [address] Phone Care Team Providers Care Memory Care Director Name Role Phone Bridgette Morrissey APRN, EXPERIENTIAL THERAPIST Primary Care P rovider Dinora Rojas APRN, EXPERIENTIAL THERAPIST Unavailable [phone] Cheikh Fairbanks MD Unavailable [phone] [facility] Status:Enrolled (Active) Start date:12/01/2024 Enrollment date:12/01/2024 Related social drivers of health:Intimate Partner Violence, Social Connections, Tobacco Use, Financial Resource Strain, Depression, Stress, Food Insecurity, Housing Stability Continued Care and Services Coordination
== END 2025-02-02 10:29 | disposition home or self-care (01) ==
PROVIDERS: Emergency Provider Nurse Practitioner Family; PCP Nurse Practitioner
DX: J02.9 Acute pharyngitis, unspecified (principal); F17.210 Nicotine dependence, cigarettes, uncomplicated; Q71.21 Congenital absence of both forearm and hand, right upper limb
CPT/HCPCS: 87081; 87880; 99212; G0463

== ENCOUNTER 2025-03-14 10:23 | Emergency (ER) | payer OTHER, SELFPAY ==
--- OUTSIDE RECORDS SUMMARY | 2025-03-14 10:26 | XMS_ITS ---
Author Organization [facility] CALL [facility] Address [address] [place] [address] Phone Care Team Providers Care Network Diagnostic Support Specialist Name Role Phone Bridgette Morrissey APRN, TOOL GRINDER SET UP OPERATOR GEAR Primary Care P rovider Dinora Rojas APRN, TOOL GRINDER SET UP OPERATOR GEAR Unavailable [phone] Cheikh Fairbanks MD Unavailable [phone] [facility] Status:Enrolled (Active) Start date:12/01/2024 Enrollment date:12/01/2024 Related social drivers of health:Intimate Partner Violence, Social Connections, Tobacco Use, Financial Resource Strain, Depression, Stress, Food Insecurity, Housing Stability Continued Care and Services Coordination
--- OUTSIDE RECORDS SUMMARY | 2025-03-14 10:26 | XMS_ITS | Clinical Summary ---
Author Organization [facility] CALL [facility] EN[facility] Address [address] [place] [address] Phone Care Team Providers Care Employment Director Name Role Phone Bridgette Morrissey APRN, MANAGEMENT DEVELOPMENT SPECIALIST Primary Care P rovider Dinora Rojas APRN, MANAGEMENT DEVELOPMENT SPECIALIST Unavailable [phone] Cheikh Fairbanks MD Unavailable [phone] Allergies Active Allergy Reactions Criticality Noted [...] How often do you attend chur or mandaeism services? Never 07/16/2024 Do you belong to any clubs o r organizations such as christianity groups, unions, fraternal or athletic groups, or [...] housing, medical care, and heating? Hard 07/16/2024 [facility]at ional Health - Occupational Stress [...] any time in the past [address] [facility], were you homeless or living in a skilled nursing (including now)? No 07/16/2024 Comments No Sex [...] 07/16/2024 2:39 PM CDT Plan of Treatment Upcoming Encounters Date Type Department Care Team (Late st Contact Info) Description 03/18/2025 7:45 AM CDT Office Visit [facility] - Primary Care - [address] [place] [address] Cain Nguyễn, MARGARITO [address] [place] [address] 03/18/2025 8:10 AM CDT Immunization [facility] - Primary Care - [address] [address] [facility] Nurse [place] Health Maintenance Due Date Last Done Comments [...] Immunization Discontinued 11/29/2014 Hepatitis B Immunization Discontinued Human Papillomavirus (HPV) Immunization Aged Out No longer eligible based on patient's age to complete this topic Meningococcal Immunization (ACWY) Aged Out No longer [...] PM CDT Cervical cancer screening PATHOLOGY CYTOLOGY FLORAL ARTIST Routine 08/17/2018 3:31 PM CDT Cervical cancer screening from Last 3 Months or Most Recently Relevant to Health Maintenance Results * PATHOLOGY CYTOLOGY FLORAL ARTIST (08/17/2018 3:31 PM CDT) SPECIMEN ADEQUACY Satisfactory for evaluation. Endocervical cells present. 08/31/2018 6:06 PM CDT [facility] GENERAL CATEGORY EPITHELIAL CELL ABNORMALITY 08/31/2018 6:06 PM CDT [facility] DESCRIPTIVE DIAGNOSIS ASCUS: A high grade lesion cannot be excluded. 08/31/2018 6:06 PM CDT [facility] at 1806 CDT AUTOMATED EXAMINATION Analysis of this sample has been assisted by an automated imaging and review system ([employer] System, [employer], [place], [place]). This case is further evaluated and finalized by a cooker chip and/or pathologist. 08/31/2018 6:06 PM CDT [facility] DISCLAIMER The PAP smear is a [...] unless clinically indicated. 08/31/2018 6:06 PM CDT [facility] Case Report Gynecologic Cytology Report Case: [id number] Authorizing Provider: Alexandra Sinclair PAC Collected: 08/17/2018 03:31 PM Ordering Location: [facility] Received: 08/17/2018 03:31 PM GROUP - [facility] Screen: Caryn Mchugh Pathologist: Flor Perkins MD Specimen: TP Screen, CERVIX/ENDOCERVIX 08/31/2018 6:06 PM CDT [facility] HPV Reflex if ASCUS? Yes 08/31/2018 6:06 PM CDT [facility] Specimen of unknown material (specimen) CERVIX UTERI STRUCTURE / Unknown Non-Phlebotomy Collection / Unknown 08/17/2018 3:31 PM CDT 08/17/2018 3:31 PM CDT Alexandra Sinlcair PAC PATHOLOGY/CYTOLOGY ORDERA BLES Final Result [facility] [address] [place] [address], * HUMAN PAPILLOMA VIRUS (HPV) (08/17/2018 3:31 PM CDT) HPV OTHER HIGH RISK TYPES, PCR NEGATIVE NEGATIVE 09/02/2018 3:58 PM CDT [facility] Comment: The following Other High Risk [...] 16 NEGATIVE NEGATIVE 09/02/2018 3:58 PM CDT [facility] Comment: A negative high-risk HPV result [...] 18 NEGATIVE NEGATIVE 09/02/2018 3:58 PM CDT [facility] Comment: A negative high-risk HPV result [...] PM CDT 08/31/2018 6:06 PM CDT Narrative [facility] - 09/02/2018 3:58 PM CDT Performed by Real-Time Polymerase Chain Reaction (PCR) on the [employer] 4800. This assay has been validated for use with post-aliquot samples from the [employer] T5000 processor. us Alexandra Sinclair PAC LAB SEND OUTS Final Res ult [facility] [address] [place] [address], from Last 3 Months or Most Recently Relevant to Health Maintenance Insurance MEDICAID [place] MED[place] [employer] PROGRAM Care Teams Employment Director Relationship Specialty Start Date End Date Bridgette Morrissey APRN, MANAGEMENT DEVELOPMENT SPECIALIST [address] [place] [address] PCP - General Advanced Practice Nurse 07/16/24 Dinora Rojas APRN, MANAGEMENT DEVELOPMENT SPECIALIST [address] [place] [address] Nurse Practitioner Advanced Practice Nurse 09/15/24 Cheikh Fairbanks MD [address] [place] [address] Consulting Physician Obstetrics & Gynecology 09/28/24
[2025-03-14 10:38] VITALS: BP 103/57; PULSE 72; RESP 20; TEMP 36.7; O2SAT 100
--- NOTE | 2025-03-14 10:45 | ED.URI ---
HPI - URI/Sore Throat General Chief Complaint: Upper Respiratory Infection Stated Complaint: sorethroat,head pressure Time Seen by Provider: 03/14/25 10:50 Source: patient, RN notes reviewed and old records reviewed Mode of arrival: ambulatory Limitations: no limitations History of Present Illness HPI Narrative: 35 year old female presents to [facility] care with complaints of headache last night with sore throat with no fevers noted. Patient admits to some sinus drainage and congestion and sinus pressure. Patient reports that she has not taken any OTC medication for her symptoms. Patient denies any shortness of breath or any chest pain. MD elicited complaint: sore throat, rhinorrhea, nasal congestion and other (headache) Onset (ago): day(s) (last night) Consistency: constant Pain scale (0-10): 4 Description of mucous: clear Able to tolerate fluids by mouth: Yes Treatments prior to arrival: none Related Data Home Medications ?Medication ?Instructions ?Recorded ?Confirmed ?Last Taken ?Type No Home Medications 02/02/25 Unknown History Allergies Allergy/AdvReac Type Severity Reaction Status Date / Time amoxicillin Allergy Unknown HIVES Verified 03/14/25 10:47 Penicillins Allergy Unknown HIVES Verified 03/14/25 10:47 Sulfa (Sulfonamide Allergy Unknown Hives Verified 03/14/25 10:47 Antibiotics) valacyclovir Allergy Unknown Unknown Verified 03/14/25 10:47 Review of Systems Review of Systems: CONSTITUTIONAL: Denies malaise, chills, sweats, or fever. EYES: Denies visual changes, redness, or discharge. ENT: Reports rhinorrhea, congestion, sinus pain,no otalgia and positive for sore throat. CARDIOVASCULAR: Denies chest pain, palpitations, or edema. RESPIRATORY: Reports no cough.? Denies dyspnea. GASTROINTESTINAL: Denies abdominal pain, nausea, vomiting, diarrhea SKIN: Denies rash or itching. MUSCULOSKELETAL: Denies myalgia. NEUROLOGIC: Reports some headache. 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 Bipolar 1 disorder Anxiety and depression Surgical History Surgical History Previous section x3 Family History Family History Mother Family history non-contributory Social History Social History Smoking status: Current every day smoker Tobacco type: e-cigarettes/vaping Additional smoking assessment comments: former cigarette smoker Living arrangements: with family Gender identity (if verbalized by the patient): Female Sexual Orientation (if Verbalized by the Patient): Straight or Heterosexual Spiritual care concerns: No Comments At time of signature, agree with nursing past medical, surgical, social and family history. There is no relevant family history pertinent to the presenting complaint Exam Narrative: GENERAL: Well-appearing, well-nourished, and in no acute distress. HEAD: Normocephalic EYES: PERRLA, conjunctivae clear ENT: Nares clear, turbinates edematous and erythematous, clear discharge. Mucous membranes moist. TM pearly godinez with dull light reflex bilaterally; no tragal tenderness. Oropharynx erythematous without lesions. Tonsils not enlarged and without exudate, no drooling, no hoarseness, no trismus, uvula midline.post nasal drainage NECK: Supple. No lymphadenopathy CHEST: Clear to auscultation, breath sounds equal. No wheezing, rhonchi, rales, or stridor. No respiratory distress, speaks in full sentences. SAO2 100% on room air HEART: Regular rate and rhythm. No murmur heard. SKIN: Warm, dry, no rash. NEURO: Alert and oriented x3. PSYCH: Normal mood and affect Course Course Emergency Course: Patient is aware of diagnosis, understands and agrees to treatment plan.? Anticipatory guidance given.? Patient agrees to follow-up as directed and is aware of reasons to seek care at the emergency department. Portions of this record may have been created with voice recognition software Level of Care: Express Care Visit Vital Signs Vital signs: Vital Signs Temperature 36.7 C 03/14/25 10:38 Pulse Rate 72 03/14/25 10:38 Respiratory Rate 20 03/14/25 10:38 Blood Pressure 103/57 L 03/14/25 10:38 Pulse Oximetry 100 03/14/25 10:38 Oxygen Delivery Room Air 03/14/25 10:38 Temperature 36.7 C 03/14/25 10:38 Pulse Rate 72 03/14/25 10:38 Respiratory Rate 20 03/14/25 10:38 Blood Pressure 103/57 L 03/14/25 10:38 Pulse Oximetry 100 03/14/25 10:38 Oxygen Delivery Room Air 03/14/25 10:38 Reviewed MDM - URI/Sore Throat MDM Narrative Medical decision making narrative: Differential diagnosis considered: Hinds virus, strep pharyngitis, allergic rhinitis, upper respiratory tract infection, sinusitis, rhinosinusitis, nasopharyngitis. viral pharyngitis, otitis media, otitis externa, pneumonia, bronchitis, viral cough syndrome, viral syndrome, and influenza.? Exam findings show no acute concerns or changes; patient is non-toxic appearing and is in no distress.? Patient is appropriate for outpatient treatment and follow-up. Differential Diagnosis Differential diagnosis: Likely upper respiratory infection, sinusitis, viral infection, pharyngitis and other (strep pharyngitis) Medical Records Attestation: I reviewed the patient's medical records. Lab Data Attestation: I reviewed the patient's lab results. Lab results narrative: strep screen negative, culture sent Labs: Lab Results 03/14/25 Range/Units 10:50 POC Grp A Strep Screen Negative (Negative) reviewed Critical Care Time Critical Care Time Critical Care Time: No Discharge Plan Discharge Clinical Impression: Upper respiratory infection Qualifiers: URI type: unspecified URI Qualified Code(s): J06.9 - Acute upper respiratory infection, unspecified Pharyngitis Qualifiers: Pharyngitis/tonsillitis etiology: unspecified etiology Qualified Code(s): J02.9 - Acute pharyngitis, unspecified Patient Disposition: Home Condition: Stable Instructions: Antibiotic Form Additional Instructions: Increase fluids especially juices and water [id number] cough and cold medicine of your choice for your symptoms Zyrtec Claritin or Shivani daily heat to the face 20-30 minutes 4-6 times a day for pain Salt water gargles, throat lozenges or throat sprays as desired \Tylenol or ibuprofen for any fever pain Your strep test today was negative. A throat culture will be sent to the laboratory for further testing. IF the test is positive, you will receive a phone call within 48 hours and an appropriate antibiotic will be initiated at that time. If your symptoms persist, change or worsen significantly before you can contact your personal physician then please, without delay, go to the emergency department for further evaluation. Follow-up with PCP in 7-10 days or sooner if needed Patient Language: Turkish Prescriptions: No Action No Home Medications Follow-up/Referrals: Yuni,Bridgette Kaur APN [Primary Care Provider] - Time of Disposition: 11:13 Quality [place] Coma Scale Eyes: Open Verbal: Oriented and Alert Motor: Follows Commands [place] Coma Total Score: 15
[2025-03-14 11:29] LABS: EDSTREPNEGPOS1 Negative (Negative)
== END 2025-03-14 11:31 | disposition home or self-care (01) ==
PROVIDERS: Emergency Provider Registered Nurse; PCP Nurse Practitioner
DX: J06.9 Acute upper respiratory infection, unspecified (principal); J02.9 Acute pharyngitis, unspecified; F17.290 Nicotine dependence, other tobacco product, uncomplicated; Q71.21 Congenital absence of both forearm and hand, right upper limb
CPT/HCPCS: 87081; 87880; 99213; G0463

== ENCOUNTER 2025-06-17 17:20 | Emergency (ER) | payer OTHER, SELFPAY ==
--- OUTSIDE RECORDS SUMMARY | 2025-06-17 17:22 | XMS_ITS | Clinical Summary ---
Author Organization [facility] Address [address] [place] [address] Phone Care Team Providers Care Supervisor Process Testing Name Role Phone Bridgette Morrissey APRN, HOSPITALITY SERVICES MANAGER Primary Care P rovider Dinora Rojas APRN, HOSPITALITY SERVICES MANAGER Unavailable [phone] Cheikh Fairbanks MD Unavailable [phone] Allergies Active Allergy Reactions Criticality Noted Date Comments Amoxicillin Hives,Itching 08/17/2018 Cefaclor Hives Reaction: Hives, Penicillins Itching 08/17/2018 Sulfa Antibiotics Swelling 08/17/2018 Valacyclovir Hives Low 08/23/2024 Medications No known medications Active Problems Problem Noted Date Diagnosed Date 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 Menometrorrhagia 09/14/2018 Encounters Date Type Department Care Team Description 03/18/2025 9:50 AM CDT Lab [facility] [place] [address] Em[address]io Corbett IFG (impaired fasting glucose); Moderate mixed hyperlipidemia not requiring statin therapy Discharge Disposition: Discharged to home or Selfcare 03/18/2025 7:45 AM CDT Office Visit [facility] - [address] [place] [address] Cain Nguyễn PAC Moderate mixed hyperlipidemia not requiring statin therapy (Primary Dx); IFG (impaired fasting glucose); Screening for cervical cancer; Need for Tdap vaccination Discharge Disposition: Discharged to home or Selfcare 03/18/2025 Results Follow-Up [facility] - Primary Care - [place] [address] [place] [address] Cain Nguyễn, PAC HEMOGLOBIN A1C W/ ESTIMATED GLUCOSE, BASIC METABOLIC PANEL W/ CALCIUM TOTAL, LIPID PANEL, Additional followed-up results: 2 03/18/2025 Travel from Last 3 Months Immunizations Immunization Administration Dates Next Due DTP Vaccine 04/07/1995,05/19/1992,01/13/1991 Hib Vaccine,unspecified Formulation 05/19/1992,0 01/13/1991 Inactivated Polio Vaccine 05/19/1992,01/13/1991 Influenza Vaccine, Quadrivalent, PF 08/04/2020,0 12/30/2019,08/17/2018 MMR Vaccine 11/30/2014,04/07/1995,05/19/1992 OPV 04/07/1995 TD VACCINE 08/09/2004 TDAP Vaccine 03/18/2025,02/03/2024(),11/29/19 Social History Tobacco Use Types Packs/Day Years Used Date Smoking Tobacco: Former Cigarettes 1.5 15.2 S tarted: 03/18/2010 Smokeless Tobacco: Never Alcohol Use Standard Drinks/Week Comments Yes 0 (1 standard drink = 0.6 oz pur e alcohol) Occasionally [employer] Utilities Answer Date Recorded In the past 12 months has [employer], gas, oil, or water [employer] threatened to shut off services in your home? No 07/16/2024 Social Connection and Isolation Panel Answer Date Recorded In a typical week, how many times do you talk on the phone with family, friends, or neighbors? More than three times a week 07/16/2024 How often do you get togethe r with friends or relatives? Once a week 07/16/2024 How often do you attend chur ch or christian services? Never 07/16/2024 Do you belong to any clubs o r organizations such as latter-day groups, unions, fraternal or athletic groups, or [...] housing, medical care, and heating? Hard 07/16/2024 PHQ-2 Answer Date Recorded Total Score - Questions 1-9 0 03/03 [facility] - Occupational [...] any time in the past 12 m [facility], were you homeless or living in a chcf (including now)? No 07/16/2024 Sexually Active Control Partners Comments Yes Male Comments No Sex and Gender Information Value Date Recorded Sex Assigned at Not on file Legal Sex Female 7:34 PM CDT Gender Identity Not on file Sexual Orientation Not on file Last Filed Vital Signs Vital Sign Reading Time Taken Comments Blood Pressure 114/60 03/18/2025 7:59 AM CDT Pulse 103 03/18/2025 7:59 AM CDT Temperature 37.4 C (99.3 F) 03/18/2025 7:59 AM CDT Respiratory Rate 16 03/18/2025 7:59 AM CDT Oxygen Saturation 100% 03/18/2025 7:59 AM CDT Inhaled Oxygen Concentration - - Weight 51.3 kg (113 lb) 03/18/2025 7:59 AM CDT Height 157.5 cm (5' 2) 07/16/2024 2:39 PM CDT Body Mass Index 20.67 07/16/2024 2:39 PM CDT Plan of Treatment Upcoming Encounters Date Type Department Care Team (Late st Contact Info) Description 03/20/2026 8:30 AM CDT Office Visit [facility] - Primary Care - [address] [place] [address] Bridgette Morrissey, SUPERVISOR TYPE BAR AND SEGMENT, HOSPITALITY SERVICES MANAGER [address] [place], [place] [id number] Health Maintenance Due Date Last Done Comments Human Papillomavirus (HPV) Immunization (1 - 3-dose SCDM series) 2017 Pap Smear 08/17/2021 08/17/2018 Cervical Cancer Screening (CCS) 08/17/2023 HPV/Cotest 08/17/2023 08/17/2018 SARS-COV-2 Immunization ( season) 2024 Influenza Immunization (#1) 2025 10/0 12/2019, 12/30/2019, 08/17/2018 DTaP/Tdap/Td Immunization (7 - Td or Tdap) 03/18/2035 03/18/2025, 11/29/2014, 08/09/2004, Additional history exists Respiratory Syncytial Virus (RSV) Immunization (Adult) (1 - 1-dose 75+ series) 2065 Hepatitis C Virus (HCV) Screening Completed 07/08/2014 TdaP Immunization Discontinued 03/18/2025, 11/29/2014 Hepatitis B Immunization Discontinued Meningococcal Immunization (ACWY) Aged Out No longer eligible based on patient's age to complete this topic Pneumococcal Immunization Combined Aged Out No longer eligible based on patient's age to complete this topic Rotavirus Immunization Aged Out No lo nger eligible based on patient's age to complete this topic Procedures Procedure Name Priority Date/Time Associated Diagnosis Comments THYROID SCREEN WITH REFLEX Routine 03/18/2025 8:29 AM CDT Moderate mixed hyperlipidemia not requiring statin therapy CBC WITH AUTO DIFFERENTIAL Today 03/18/2025 8:29 AM CDT Moderate mixed hyperlipidemia not requiring statin therapy THYROID SCREEN WITH REFLEX Routine 03/18/2025 8:29 AM CDT Moderate mixed hyperlipidemia not requiring statin therapy COMPLETE BLOOD COUNT (CBC) WITH DIFF Today 03/18/2025 8:29 AM CDT Moderate mixed hyperlipidemia not requiring statin therapy LIPID PANEL Today 03/18/2025 8:29 AM CDT Moderate mixed hyperlipidemia not requiring statin therapy BASIC METABOLIC PANEL W/ CALCIUM TOTAL Routine 03/18/2025 8:29 AM CDT IFG (impaired fasting glucose) HEMOGLOBIN A1C W/ ESTIMATED GLUCOSE Routine 03/18/2025 8:29 AM CDT IFG (impaired fasting glucose) HUMAN PAPILLOMA VIRUS (HPV) Routine 08/17/2018 3:31 PM CDT Cervical cancer screening PATHOLOGY CYTOLOGY EMPLOYEE RELATIONS DIRECTOR Routine 08/17/2018 3:31 PM CDT Cervical cancer screening from Last 3 Months or Most Recently Relevant to Health Maintenance Results * THYROID SCREEN WITH REFLEX (03/18/2025 8:29 AM CDT) TSH 1.797 0.300 - 5.000 mIU/L 03/18/2025 11:01 AM CDT [facility] Blood Venipuncture / Unknown 03/18/2025 8:29 AM CDT 03/18/2025 8:29 AM CDT Cain Nguyễn PAC CHEMISTRY ORDERABLES Final R [facility] Performing Organization Address City/[facility]/ZIP Co de Phone Number [facility] [address] [place] [address] * HEMOGLOBIN A1C W/ ESTIMATED GLUCOSE (03/18/2025 8:29 AM CDT) Pathologist [facility] HGB-A1C 5.1 4.0 - 6.0 % 03/18/2025 10:38 AM CDT [facility] Est Average Glucose 99.7 mg/dL 03/18/2025 10:38 AM CDT [facility] Blood Venipuncture / Unknown 03/18/2025 8:29 AM CDT 03/18/2025 8:29 AM CDT Narrative [facility] - 03/18/2025 10:38 AM CDT HEMOGLOBIN A1C: DIABETIC PATIENTS: WELL-CONTROLLED: 6.2 - 7.0 INTERMEDIATE WELL-CONTROLLED: 7.0 - 9.0 POORLY-CONTROLLED: >9.0 Specimens containing greater than 5% of Hemoglobin F may result in lower than expected % HbA1C results. Cain Nguyễn PAC CHEMISTRY ORDERABLES Final R esult [facility] [address] [place] [address] * (ABNORMAL) CBC WITH AUTO DIFFERENTIAL (03/18/2025 8:29 AM CDT) WBC 7.46 4.00 - 12.00 10(3)/[facility] 03/18/2025 10:35 AM CDT [facility] RBC 4.07 3.80 - 5.30 10(6)/[facility] 03/18/2025 10:35 AM CDT [facility] HEMOGLOBIN (HGB) 13.7 12.0 - 15.8 g/dL 03/18/2025 10:35 AM CDT [facility] HEMATOCRIT (HCT) 41.3 36.0 - 47.0 % 03/18/2025 10:35 AM CDT [facility] MCV 101.5(H) 82.0 - 96.0 fL 03/18/2025 10:35 AM CDT [facility] MCH 33.7 26.0 - 34.0 pg 03/18/2025 10:35 AM CDT [facility] MCHC 33.2 31.0 - 36.0 g/dL 03/18/2025 10:35 AM CDT [facility] PLATELET COUNT 173 140 - 440 10(3)/[facility] 03/18/2025 10:35 AM CDT [facility] RDW 13.2 11.8 - 15.5 % 03/18/2025 10:35 AM CDT [facility] MPV 13.0(H) 9.7 - 12.4 fL 03/18/2025 10:35 AM CDT [facility] NEUTROPHILS 60.5 47.0 - 73.0 % 03/18/2025 10:35 AM CDT [facility] LYMPHOCYTES 31.5 18.0 - 42.0 % 03/18/2025 10:35 AM CDT [facility] MONOCYTES 5.8 4.0 - 12.0 % 03/18/2025 10:35 AM CDT [facility] EOSINOPHILS 1.3 0.0 - 5.0 % 03/18/2025 10:35 AM CDT [facility] BASOPHILS 0.9 0.0 - 1.0 % 03/18/2025 10:35 AM CDT [facility] ABSOLUTE NEUTROPHILS 4.51 1.60 - 7.70 10(3)/[facility] 03/18/2025 10:35 AM CDT [facility] ABSOLUTE LYMPHOCYTES 2.35 1.30 - 3.20 10(3)/[facility] 03/18/2025 10:35 AM CDT [facility] ABSOLUTE MONOCYTES 0.43 0.20 - 1.00 10(3)/[facility] 03/18/2025 10:35 AM CDT [facility] ABSOLUTE EOSINOPHIL 0.10 0.00 - 0.40 10(3)/[facility] 03/18/2025 10:35 AM CDT [facility] ABSOLUTE BASOPHILS 0.07 0.00 - 0.10 10(3)/[facility] 03/18/2025 10:35 AM CDT [facility] NRBC PER 100 WBC 0 03/18/20 10:35 AM CDT [facility] Blood Venipuncture / Unknown 03/18/2025 8:29 AM CDT 03/18/2025 8:29 AM CDT Cain Nguyễn [facility] HEMATOLOGY ORDERABLES Final Result [facility] [address] [place] [address] * LIPID PANEL (03/18/2025 8:29 AM CDT) CHOLESTEROL 182 <200 mg/dL 03/18/2025 11:00 AM CDT [facility] TRIGLYCERIDES 67 <150 mg/dL 03/18/2025 11:00 AM CDT [facility] HDL CHOLESTEROL 58 >40 mg/dL 11:00 AM CDT [facility] LDL 111 <130 mg/dL 03/18/2025 11:00 AM CDT [facility] VLDL 13 10 - 50 mg/dL 03/18/2025 11:00 AM CDT [facility] CHOL/HDL RATIO 3.1 0.0 - 4.4 03/18/2025 11:00 AM CDT [facility] NON-HDL CHOLESTEROL 124 <130 mg/dL 03/18/2025 11:00 AM CDT [facility] IS THE PATIENT REQUIRED TO BE FASTING? Yes 03/18/2025 11:00 AM CDT [facility] HAS THE PATIENT BEEN FASTING? Yes 03/18/2025 11:00 AM CDT [facility] Blood Venipuncture / Unknown 03/18/2025 8:29 AM CDT 03/18/2025 8:29 AM CDT us Cain Nguyễn PAC CHEMISTRY ORDERABLES Final R esult [facility] [address] [place] [address] * (ABNORMAL) BASIC METABOLIC PANEL W/ CALCIUM TOTAL (03/18/2025 8:29 AM CDT) SODIUM 139 136 - 145 mmol/L 03/18/2025 11:00 AM CDT [facility] POTASSIUM 3.9 3.5 - 5.1 mmol/L 03/18/2025 11:00 AM CDT [facility] CHLORIDE 108(H) 98 - 107 mmol/L 03/18/2025 11:00 AM CDT [facility] CO2, VENOUS 24 22 - 30 mmol/L 03/18/2025 11:00 AM CDT [facility] ANION GAP 10.9 <18.0 mmol/L 03/18/2025 11:00 AM CDT [facility] GLUCOSE 53(L) 70 - 99 mg/dL 03/18/2025 11:00 AM CDT [facility] BUN 13 5 - 18 mg/dL 03/18/2025 11:00 AM CDT [facility] CREATININE, BLOOD 0.87 0.60 - 1.00 mg/dL 03/18/2025 11:00 AM CDT [facility] BUN/CREATININE RATIO 15 12 - 20 ratio 03/18/2025 11:00 AM CDT [facility] CALCIUM 9.2 8.7 - 10.5 mg/dL 03/18/2025 11:00 AM CDT [facility] IS THE PATIENT REQUIRED TO BE FASTING? No 03/18/2025 11:00 AM CDT [facility] GFR, ESTIMATED >60 >=60 03/18/2025 11:00 AM CDT [facility] Comment: Creatinine Clearance is the preferred criteria for selecting drug dose adjustments in renally impaired patients. The GFR is provided as additional pertinent clinical information. GFR is reported in mL/min/1.73 sq m. Calculation based on the Chronic Kidney Disease Epidemiology Collaboration (CKD- EPI) equation refit without adjustment for race. GFR, EST. >60 >=60 025 11:00 AM CDT [facility] GFR, EST. NONAFRICAN >60 >=60 03/18/2025 11:00 AM CDT [facility] Blood Venipuncture / Unknown 03/18/2025 8:29 AM CDT 03/18/2025 8:29 AM CDT us Cain Nguyễn PAC CHEMISTRY ORDERABLES Final R esult [facility] [address] [place] [address] * PATHOLOGY CYTOLOGY EMPLOYEE RELATIONS DIRECTOR (08/17/2018 3:31 PM CDT) SPECIMEN ADEQUACY Satisfactory for evaluation. Endocervical cells present. 08/31/2018 6:06 PM CDT [facility] GENERAL CATEGORY EPITHELIAL CELL ABNORMALITY 08/31/2018 6:06 PM CDT [facility] DESCRIPTIVE DIAGNOSIS ASCUS: A high grade lesion cannot be excluded. 08/31/2018 6:06 PM CDT [facility] at 1806 CDT AUTOMATED EXAMINATION Analysis of this sample has been assisted by an automated imaging and review system ([employer] Imaging System, [employer], [place], [place]). This case is further evaluated and finalized by a industrial sweeper cleaner and/or pathologist. 08/31/2018 6:06 PM CDT [facility] DISCLAIMER The PAP smear is a [...] recommended every three years for women 21-29, Co-Testing, a PAP test in conjunction with an HPV (Human Papillomavirus) test for women ages 30-65, and no PAP or HPV testing for women under the age of 21 or older than 65 unless clinically indicated. 08/31/2018 6:06 PM CDT [facility] Case Report Gynecologic Cytology Report Case: [id number] Authorizing Provider: Alexandra Sinclair PAC Collected: 08/17/2018 03:31 PM Ordering Location: [facility] Received: 08/17/2018 03:31 PM [facility] Screen: Caryn Mchugh Pathologist: Flor Perkins MD Specimen: TP Screen, CERVIX/ENDOCERVIX 08/31/2018 6:06 PM CDT [facility] HPV Reflex if ASCUS? Yes 08/31/2018 6:06 PM CDT [facility] Specimen of unknown material (specimen) CERVIX UTERI STRUCTURE / Unknown Non-Phlebotomy Collection / Unknown 08/17/2018 3:31 PM CDT 08/17/2018 3:31 PM CDT us Alexandra Sinclair PAC PATHOLOGY/CYTOLOGY ORDERA BLES Final Result [facility] [address] [place] [address], [place] * HUMAN PAPILLOMA VIRUS (HPV) (08/17/2018 3:31 PM CDT) HPV OTHER HIGH RISK TYPES, PCR NEGATIVE NEGATIVE 09/02/2018 3:58 PM CDT [facility] Comment: The following Other High Risk [...] 16 NEGATIVE NEGATIVE 09/02/2018 3:58 PM CDT [facility] Comment: A negative high-risk HPV result [...] 18 NEGATIVE NEGATIVE 09/02/2018 3:58 PM CDT [facility] Comment: A negative high-risk HPV result [...] PM CDT 08/31/2018 6:06 PM CDT Narrative [facility] - 09/02/2018 3:58 PM CDT Performed by Real-Time Polymerase Chain Reaction (PCR) on the [employer]00. This assay has been validated for use with post-aliquot samples from the [facility]000 processor. us Alexandra Sinclair PAC LAB SEND OUTS Final Res ult [facility] [address] [place] [address], [place] from Last 3 Months or Most Recently Relevant to Health Maintenance Insurance [place] [employer] Care Teams Supervisor Process Testing Relationship Specialty Start Date End Date Bridgette Morrissey APRN, HOSPITALITY SERVICES MANAGER [address] [place] [address] PCP - General Advanced Practice Nurse 07/16/24 Dinora Rojas APRN, HOSPITALITY SERVICES MANAGER [address] [place] [address] Nurse Practitioner Advanced Practice Nurse 09/15/24 Cheikh Fairbanks MD [address] [place] [address] Consulting Physician Obstetrics & Gynecology 09/28/24
[2025-06-17 17:27] VITALS: BP 74/51; PULSE 81; RESP 16; TEMP 36.5; O2SAT 100
--- NOTE | 2025-06-17 17:48 | ED.WOUNDLAC ---
HPI - Wound/Laceration General Chief Complaint: Wound/Laceration Stated Complaint: Nose Injury Time Seen by Provider: 06/17/25 17:48 Source: patient Mode of arrival: ambulatory Limitations: no limitations History of Present Illness HPI narrative: 35 yo F presents with wound to R nare. Was putting chicken wire up around her deck and cut herself inside her nose. bleeding controlled. Tetanus UTD. States chicken wire was old and dirty. all system reviewed and negative except as noted above. 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 Bipolar 1 disorder Anxiety and depression Surgical History Surgical History Previous section x3 Family History Family History Mother Family history non-contributory Social History Social History Smoking status: Current every day smoker Tobacco type: e-cigarettes/vaping Additional smoking assessment comments: former cigarette smoker Living arrangements: with family Gender identity (if verbalized by the patient): Female Sexual Orientation (if Verbalized by the Patient): Straight or Heterosexual Spiritual care concerns: No Comments At time of signature, agree with nursing past medical, surgical, social and family history. There is no relevant family history pertinent to the presenting complaint. Exam Narrative: GENERAL: This is a well-nourished, well-developed patient, in no apparent distress. HEAD: normocephalic, atraumatic. EYES: PERRL. Sclera clear/white. Vision is grossly intact. EARS: External ears normal NOSE: External nose normal with no obvious nasal discharge, small laceration or puncture wound to R nare. Unable to measure due to location. Bleedind controlled. NECK: Neck supple, non-tender without lymphadenopathy, masses or thyromegaly. CARDIOVASCULAR: Regular rate and rhythm without murmurs, gallops, or rubs. RESPIRATORY: Clear to auscultation. Breath sounds equal bilaterally. No wheezes, rales, or rhonchi. SKIN: warm, Dry, intact with no suspicious lesions or rash, good texture and turgor. NEURO: awake, alert, and oriented to person, place and time. There were no obvious focal neurologic abnormalities. EXTREMITIES: No joint tenderness, effusion, or edema noted. Course Course Level of Care: Express Care Visit Vital Signs Vital signs: Vital Signs Temperature 36.5 C 06/17/25 17:27 Pulse Rate 81 06/17/25 17:27 Respiratory Rate 16 06/17/25 17:27 Blood Pressure 74/51 L 06/17/25 17:27 Pulse Oximetry 100 06/17/25 17:27 Oxygen Delivery Room Air 06/17/25 17:27 Temperature 36.5 C 06/17/25 17:27 Pulse Rate 81 06/17/25 17:27 Respiratory Rate 16 06/17/25 17:27 Blood Pressure 74/51 L 06/17/25 17:27 Pulse Oximetry 100 06/17/25 17:27 Oxygen Delivery Room Air 06/17/25 17:27 reviewed Procedures Other Procedure Procedure 1: Other Procedure: wound cleaned with wound cleanser and saline. MDM - Wound/Laceration MDM Narrative Medical decision making narrative: wound to R nare does not need suture repair. recommend wound care. Will give abx due to dirty chicken wire. pt agrees with plan of care. Discharge Plan Discharge Clinical Impression: Laceration of nose Qualifiers: Encounter type: initial encounter Qualified Code(s): S01.21XA - Laceration without foreign body of nose, initial encounter Patient Disposition: Home Condition: Stable Instructions: Antibiotic Form, Laceration (ED) Additional Instructions: Keep laceration clean. Wash with provided saline and wound cleanser. Take antibiotic as prescribed to prevent wound infection. See your doctor for increased pain, drainage, fever. Patient Language: Icelandic Prescriptions: New cephalexin 500 mg capsule 500 mg PO Q8H 7 Days Qty: 21 0RF Follow-up/Referrals: PHYSICIAN NOT ON STAFF,NONSTAFF [Primary Care Provider] - Time of Disposition: 17:57
== END 2025-06-17 18:08 | disposition home or self-care (01) ==
PROVIDERS: Emergency Provider Nurse Practitioner Family
DX: S01.21XA Laceration without foreign body of nose, initial encounter (principal); W45.8XXA Other foreign body or object entering through skin, initial encounter; F17.290 Nicotine dependence, other tobacco product, uncomplicated; Q71.21 Congenital absence of both forearm and hand, right upper limb
CPT/HCPCS: 99213; G0463